=== PATIENT | female | born 1990 | race Two or more races ===

== ENCOUNTER → 2018-01-12 | Outpatient (CLI) | payer OTHER | END | disposition home or self-care (01) | LOC: PPHC 13:03 | DX: J06.9 Acute upper respiratory infection, unspecified (principal) ==

== ENCOUNTER 2018-12-03 10:08 | Outpatient (CLI) | payer OTHER | END 2018-12-03 10:54 | disposition home or self-care (01) | LOC: SONOGRAMA 10:08 | DX: N94.89 Other specified conditions associated with female genital organs and menstrual cycle (principal) ==

== ENCOUNTER 2019-01-04 09:33 | Outpatient (CLI) | payer OTHER | END 2019-01-04 14:54 | disposition home or self-care (01) | LOC: LAB 09:33 | DX: J11.1 Influenza due to unidentified influenza virus with other respiratory manifestations (principal); J20.0 Acute bronchitis due to Mycoplasma pneumoniae ==

== ENCOUNTER → 2019-01-29 | Outpatient (CLI) | payer OTHER | END | disposition home or self-care (01) | LOC: LAB 08:47 | DX: N94.89 Other specified conditions associated with female genital organs and menstrual cycle (principal) ==

== ENCOUNTER → 2019-08-06 09:43 | Outpatient (CLI) | payer OTHER | END | disposition home or self-care (01) | LOC: LAB 09:43 | DX: D50.8 Other iron deficiency anemias (principal); N92.5 Other specified irregular menstruation; R10.2 Pelvic and perineal pain ==

== ENCOUNTER 2019-08-06 10:24 | Outpatient (CLI) | payer OTHER | END 2019-08-06 13:04 | disposition home or self-care (01) | LOC: SONOGRAMA 10:24 | DX: N92.6 Irregular menstruation, unspecified (principal); R10.2 Pelvic and perineal pain ==

== ENCOUNTER 2019-08-25 11:05 | Outpatient (CLI) | payer OTHER | END 2019-08-25 15:46 | disposition home or self-care (01) | LOC: LAB 11:05 | DX: Z34.81 Encounter for supervision of other normal pregnancy, first trimester (principal) ==

== ENCOUNTER → 2019-09-10 12:02 | Outpatient (CLI) | payer OTHER | END | disposition home or self-care (01) | LOC: LAB 12:02 | DX: Z34.81 Encounter for supervision of other normal pregnancy, first trimester (principal); R10.2 Pelvic and perineal pain ==

== ENCOUNTER 2019-09-15 09:49 | Outpatient (CLI) | payer OTHER | END 2019-09-15 09:52 | disposition home or self-care (01) | LOC: TOM 09:49 | DX: C54.1 Malignant neoplasm of endometrium (principal) ==

== ENCOUNTER 2019-10-08 14:30 | Outpatient (CLI) | payer OTHER | END 2019-10-08 14:35 | disposition home or self-care (01) | LOC: LAB 14:30 | DX: N20.0 Calculus of kidney (principal) ==

== ENCOUNTER 2019-10-12 08:48 | Outpatient (CLI) | payer OTHER | END 2019-10-12 13:17 | disposition home or self-care (01) | LOC: LAB 08:48 | DX: C54.1 Malignant neoplasm of endometrium (principal) ==

== ENCOUNTER 2019-10-18 11:22 | Outpatient (CLI) | payer OTHER | END 2019-10-18 14:25 | disposition home or self-care (01) | LOC: LAB 11:22 | DX: N91.0 Primary amenorrhea (principal) ==

== ENCOUNTER 2020-01-04 10:07 | Outpatient (CLI) | payer OTHER | END 2020-01-04 10:12 | disposition home or self-care (01) | LOC: LAB 10:07 | DX: J11.1 Influenza due to unidentified influenza virus with other respiratory manifestations (principal); J06.9 Acute upper respiratory infection, unspecified; R05 Cough ==

== ENCOUNTER 2020-01-07 09:55 | Outpatient (CLI) | payer OTHER | END 2020-01-07 15:00 | disposition home or self-care (01) | LOC: LAB 09:55 | DX: J11.1 Influenza due to unidentified influenza virus with other respiratory manifestations (principal); R05 Cough ==

== ENCOUNTER 2020-02-08 10:46 | Outpatient (CLI) | payer OTHER | END 2020-02-08 10:50 | disposition home or self-care (01) | LOC: LAB 10:46 | DX: D50.8 Other iron deficiency anemias (principal) ==

== ENCOUNTER 2020-02-29 07:13 | Outpatient (CLI) | payer OTHER | END 2020-02-29 13:58 | disposition home or self-care (01) | LOC: LAB 07:13 | DX: N91.0 Primary amenorrhea (principal); Z36.8A Encounter for antenatal screening for other genetic defects ==

== ENCOUNTER 2020-03-10 11:30 | Outpatient (CLI) | payer OTHER | END 2020-03-10 11:33 | disposition home or self-care (01) | LOC: RX STUDY 11:30 | DX: N93.0 Postcoital and contact bleeding (principal) ==

== ENCOUNTER 2020-03-23 10:44 | Outpatient (CLI) | payer OTHER | END 2020-03-23 15:00 | disposition home or self-care (01) | LOC: LAB 10:44 | PROVIDERS: ATTEND Obstetrics & Gynecology Reproductive Endocrinology | DX: N80.1 Endometriosis of ovary (principal) ==

== ENCOUNTER 2020-05-02 14:55 | Outpatient (CLI) | payer OTHER | END 2020-05-02 15:07 | disposition home or self-care (01) | LOC: LAB 14:55 | PROVIDERS: ATTEND Preventive Medicine Occupational Medicine | DX: Z12.11 Encounter for screening for malignant neoplasm of colon (principal); Z00.00 Encounter for general adult medical examination without abnormal findings; Z78.0 Asymptomatic menopausal state; Z11.4 Encounter for screening for human immunodeficiency virus [HIV]; Z13.6 Encounter for screening for cardiovascular disorders ==

== ENCOUNTER 2020-11-08 06:47 | Outpatient (CLI) | payer OTHER | END 2020-11-08 06:50 | disposition home or self-care (01) | LOC: LAB 06:47 | DX: I10 Essential (primary) hypertension (principal) ==

== ENCOUNTER 2020-12-25 07:21 | Outpatient (CLI) | payer OTHER | END 2020-12-25 07:26 | disposition home or self-care (01) | LOC: LAB 07:21 | PROVIDERS: ATTEND Radiology Diagnostic Radiology | DX: N20.0 Calculus of kidney (principal) ==

== ENCOUNTER 2020-12-25 08:07 | Outpatient (CLI) | payer OTHER | END 2020-12-25 08:10 | disposition home or self-care (01) | LOC: MRI 08:07 | PROVIDERS: ATTEND Specialist | DX: N83.292 Other ovarian cyst, left side (principal); N83.291 Other ovarian cyst, right side; N85.00 Endometrial hyperplasia, unspecified; C54.8 Malignant neoplasm of overlapping sites of corpus uteri | CPT/HCPCS: 72197 ==

== ENCOUNTER 2020-12-27 08:34 | Outpatient (CLI) | payer OTHER | END 2020-12-27 08:39 | disposition home or self-care (01) | LOC: LAB 08:34 | PROVIDERS: ATTEND Specialist | DX: C54.1 Malignant neoplasm of endometrium (principal) ==

== ENCOUNTER 2021-01-02 12:05 | Outpatient (CLI) | payer OTHER | END 2021-01-02 12:22 | disposition home or self-care (01) | LOC: RAD 12:05 | DX: J45.902 Unspecified asthma with status asthmaticus (principal); J32.0 Chronic maxillary sinusitis ==

== ENCOUNTER → 2021-02-16 06:22 | Outpatient (CLI) | payer OTHER | END | disposition home or self-care (01) | LOC: LAB 06:22 | PROVIDERS: ATTEND Specialist | DX: D68.8 Other specified coagulation defects (principal); N39.0 Urinary tract infection, site not specified; I10 Essential (primary) hypertension; K76.89 Other specified diseases of liver; N91.2 Amenorrhea, unspecified; D69.49 Other primary thrombocytopenia; D69.3 Immune thrombocytopenic purpura; I27.89 Other specified pulmonary heart diseases ==

== ENCOUNTER 2021-02-21 11:30 | Day surgery (SDC) | payer OTHER | END 2021-02-22 03:00 | disposition home or self-care (01) | LOC: CIR.AMB 11:30 | PROVIDERS: ATTEND Specialist | DX: N85.01 Benign endometrial hyperplasia (principal); Z20.822 Contact with and (suspected) exposure to COVID-19 ==

== ENCOUNTER → 2021-06-06 07:16 | Outpatient (CLI) | payer OTHER | END | disposition home or self-care (01) | LOC: LAB 07:16 | PROVIDERS: ATTEND Emergency Medicine Pediatric Emergency Medicine | DX: Z03.818 Encounter for observation for suspected exposure to other biological agents ruled out (principal) ==

== ENCOUNTER 2021-06-13 08:33 | Outpatient (CLI) | payer OTHER | END 2021-06-13 15:00 | disposition home or self-care (01) | LOC: LAB 08:33 | PROVIDERS: ATTEND Emergency Medicine Pediatric Emergency Medicine | DX: Z03.818 Encounter for observation for suspected exposure to other biological agents ruled out (principal) ==

== ENCOUNTER 2021-06-20 08:20 | Outpatient (CLI) | payer OTHER | END 2021-06-20 18:20 | disposition home or self-care (01) | LOC: LAB 08:20 | PROVIDERS: ATTEND Emergency Medicine Pediatric Emergency Medicine | DX: Z03.818 Encounter for observation for suspected exposure to other biological agents ruled out (principal) ==

== ENCOUNTER → 2021-07-03 08:09 | Outpatient (CLI) | payer OTHER | END | disposition home or self-care (01) | LOC: LAB 08:09 | PROVIDERS: ATTEND Emergency Medicine Pediatric Emergency Medicine | DX: Z03.818 Encounter for observation for suspected exposure to other biological agents ruled out (principal) ==

== ENCOUNTER 2021-07-09 09:37 | Outpatient (CLI) | payer OTHER | END 2021-07-09 18:00 | disposition home or self-care (01) | LOC: LAB 09:37 | PROVIDERS: ATTEND Emergency Medicine Pediatric Emergency Medicine | DX: Z03.818 Encounter for observation for suspected exposure to other biological agents ruled out (principal) ==

== ENCOUNTER 2021-07-19 08:34 | Outpatient (CLI) | payer OTHER | END 2021-07-19 08:35 | disposition home or self-care (01) | LOC: LAB 08:34 | PROVIDERS: ATTEND Emergency Medicine Pediatric Emergency Medicine | DX: Z03.818 Encounter for observation for suspected exposure to other biological agents ruled out (principal) ==

== ENCOUNTER 2021-07-26 07:43 | Outpatient (CLI) | payer OTHER | END 2021-07-26 07:55 | disposition home or self-care (01) | LOC: LAB 07:43 | PROVIDERS: ATTEND Emergency Medicine Pediatric Emergency Medicine | DX: Z03.818 Encounter for observation for suspected exposure to other biological agents ruled out (principal) ==

== ENCOUNTER 2021-07-26 07:51 | Outpatient (CLI) | payer OTHER | END 2021-07-26 07:55 | disposition home or self-care (01) | LOC: LAB 07:51 | DX: Z03.818 Encounter for observation for suspected exposure to other biological agents ruled out (principal) ==

== ENCOUNTER → 2021-08-03 07:57 | Outpatient (CLI) | payer OTHER | END | disposition home or self-care (01) | LOC: LAB 07:57 | PROVIDERS: ATTEND Specialist | DX: E28.8 Other ovarian dysfunction (principal) ==

== ENCOUNTER → 2021-08-06 10:01 | Outpatient (CLI) | payer OTHER | END | disposition home or self-care (01) | LOC: LAB 10:01 | PROVIDERS: ATTEND Emergency Medicine Pediatric Emergency Medicine | DX: Z03.818 Encounter for observation for suspected exposure to other biological agents ruled out (principal) ==

== ENCOUNTER → 2021-08-16 | Outpatient (CLI) | payer OTHER | END | disposition home or self-care (01) | LOC: LAB 08:13 | PROVIDERS: ATTEND Emergency Medicine Pediatric Emergency Medicine | DX: Z03.818 Encounter for observation for suspected exposure to other biological agents ruled out (principal) ==

== ENCOUNTER → 2021-08-23 08:28 | Outpatient (CLI) | payer OTHER | END | disposition home or self-care (01) | LOC: LAB 08:28 | PROVIDERS: ATTEND Emergency Medicine Pediatric Emergency Medicine | DX: Z03.818 Encounter for observation for suspected exposure to other biological agents ruled out (principal) ==

== ENCOUNTER → 2021-08-31 11:41 | Outpatient (CLI) | payer OTHER | END | disposition home or self-care (01) | LOC: LAB 11:41 | PROVIDERS: ATTEND Emergency Medicine Pediatric Emergency Medicine | DX: Z03.818 Encounter for observation for suspected exposure to other biological agents ruled out (principal) ==

== ENCOUNTER 2021-09-14 08:17 | Outpatient (CLI) | payer OTHER | END 2021-09-14 08:38 | disposition home or self-care (01) | LOC: LAB 08:17 | PROVIDERS: ATTEND Emergency Medicine Pediatric Emergency Medicine | DX: Z03.818 Encounter for observation for suspected exposure to other biological agents ruled out (principal) ==

== ENCOUNTER → 2021-09-25 07:27 | Outpatient (CLI) | payer OTHER | END | disposition home or self-care (01) | LOC: LAB 07:27 | PROVIDERS: ATTEND Emergency Medicine Pediatric Emergency Medicine | DX: Z03.818 Encounter for observation for suspected exposure to other biological agents ruled out (principal) ==

== ENCOUNTER 2021-10-04 11:01 | Outpatient (CLI) | payer OTHER | END 2021-10-04 11:06 | disposition home or self-care (01) | LOC: LAB 11:01 | PROVIDERS: ATTEND Emergency Medicine Pediatric Emergency Medicine | DX: Z03.818 Encounter for observation for suspected exposure to other biological agents ruled out (principal) ==

== ENCOUNTER 2021-10-12 08:48 | Outpatient (CLI) | payer OTHER | END 2021-10-12 15:00 | disposition home or self-care (01) | LOC: LAB 08:48 | PROVIDERS: ATTEND Emergency Medicine Pediatric Emergency Medicine | DX: Z03.818 Encounter for observation for suspected exposure to other biological agents ruled out (principal) ==

== ENCOUNTER 2021-10-18 13:16 | Outpatient (CLI) | payer OTHER | END 2021-10-18 13:17 | disposition home or self-care (01) | LOC: LAB 13:16 | PROVIDERS: ATTEND Preventive Medicine Occupational Medicine | DX: U07.1 COVID-19 (principal) ==

== ENCOUNTER 2021-10-23 14:00 | Outpatient (CLI) | payer OTHER | END 2021-10-23 15:00 | disposition home or self-care (01) | LOC: ASH CLINIC 14:00 | DX: U07.1 COVID-19 (principal); Z23 Encounter for immunization ==

== ENCOUNTER 2022-01-14 07:19 | Outpatient (CLI) | payer OTHER | END 2022-01-14 07:22 | disposition home or self-care (01) | LOC: LAB 07:19 | DX: Z20.822 Contact with and (suspected) exposure to COVID-19 (principal) ==

== ENCOUNTER 2022-01-22 07:47 | Outpatient (CLI) | payer OTHER | END 2022-01-22 07:48 | disposition home or self-care (01) | LOC: LAB 07:47 | DX: Z20.822 Contact with and (suspected) exposure to COVID-19 (principal) ==

== ENCOUNTER 2022-01-28 07:34 | Outpatient (CLI) | payer OTHER | END 2022-01-28 07:38 | disposition home or self-care (01) | LOC: LAB 07:34 | DX: Z03.818 Encounter for observation for suspected exposure to other biological agents ruled out (principal) ==

== ENCOUNTER 2022-02-04 07:20 | Outpatient (CLI) | payer OTHER | END 2022-02-04 07:23 | disposition home or self-care (01) | LOC: LAB 07:20 | DX: Z03.818 Encounter for observation for suspected exposure to other biological agents ruled out (principal) ==

== ENCOUNTER → 2022-02-18 08:05 | Outpatient (CLI) | payer OTHER | END | disposition home or self-care (01) | LOC: LAB 08:05 | PROVIDERS: ATTEND General Practice | DX: Z03.818 Encounter for observation for suspected exposure to other biological agents ruled out (principal) ==

== ENCOUNTER 2022-02-26 08:26 | Outpatient (CLI) | payer OTHER | END 2022-02-26 08:31 | disposition home or self-care (01) | LOC: LAB 08:26 | PROVIDERS: ATTEND General Practice | DX: Z03.818 Encounter for observation for suspected exposure to other biological agents ruled out (principal) ==

== ENCOUNTER 2022-03-04 08:09 | Outpatient (CLI) | payer OTHER | END 2022-03-04 08:15 | disposition home or self-care (01) | LOC: LAB 08:09 | PROVIDERS: ATTEND General Practice | DX: Z03.818 Encounter for observation for suspected exposure to other biological agents ruled out (principal) ==

== ENCOUNTER 2022-03-26 08:34 | Outpatient (CLI) | payer OTHER | END 2022-03-26 08:38 | disposition home or self-care (01) | LOC: LAB 08:34 | PROVIDERS: ATTEND General Practice | DX: Z20.822 Contact with and (suspected) exposure to COVID-19 (principal) ==

== ENCOUNTER → 2022-04-16 07:52 | Outpatient (CLI) | payer OTHER | END | disposition home or self-care (01) | LOC: LAB 07:52 | PROVIDERS: ATTEND General Practice | DX: Z20.822 Contact with and (suspected) exposure to COVID-19 (principal) ==

== ENCOUNTER 2022-04-25 09:15 | Outpatient (CLI) | payer OTHER | END 2022-04-25 09:22 | disposition home or self-care (01) | LOC: NUCLEAR 09:15 | PROVIDERS: ATTEND General Practice | DX: I73.9 Peripheral vascular disease, unspecified (principal); I82.403 Acute embolism and thrombosis of unspecified deep veins of lower extremity, bilateral ==

== ENCOUNTER 2022-05-14 07:02 | Outpatient (CLI) | payer OTHER | END 2022-05-14 07:03 | disposition home or self-care (01) | LOC: LAB 07:02 | PROVIDERS: ATTEND Preventive Medicine Occupational Medicine | DX: Z13.9 Encounter for screening, unspecified (principal); I73.9 Peripheral vascular disease, unspecified ==

== ENCOUNTER 2022-06-28 08:29 | Outpatient (CLI) | payer OTHER | END 2022-06-28 15:07 | disposition home or self-care (01) | LOC: LAB 08:29 | DX: D50.8 Other iron deficiency anemias (principal) ==

== ENCOUNTER → 2022-08-15 09:59 | Outpatient (CLI) | payer OTHER | END | disposition home or self-care (01) | LOC: LAB 09:59 | DX: Z20.822 Contact with and (suspected) exposure to COVID-19 (principal) ==

== ENCOUNTER → 2022-09-11 09:29 | Outpatient (CLI) | payer OTHER | END | disposition home or self-care (01) | LOC: LAB 09:29 | DX: Z20.822 Contact with and (suspected) exposure to COVID-19 (principal) ==

== ENCOUNTER 2022-09-17 08:31 | Outpatient (CLI) | payer OTHER | END 2022-09-17 08:32 | disposition home or self-care (01) | LOC: LAB 08:31 | DX: Z20.822 Contact with and (suspected) exposure to COVID-19 (principal) ==

== ENCOUNTER 2022-09-30 08:22 | Outpatient (CLI) | payer OTHER | END 2022-09-30 08:23 | disposition home or self-care (01) | LOC: LAB 08:22 | DX: Z20.822 Contact with and (suspected) exposure to COVID-19 (principal) ==

== ENCOUNTER 2022-10-07 08:05 | Outpatient (CLI) | payer OTHER | END 2022-10-07 08:06 | disposition home or self-care (01) | LOC: LAB 08:05 | DX: Z20.822 Contact with and (suspected) exposure to COVID-19 (principal) ==

== ENCOUNTER 2023-01-21 07:55 | Outpatient (CLI) | payer OTHER | END 2023-01-21 07:57 | disposition home or self-care (01) | LOC: LAB 07:55 | DX: Z20.822 Contact with and (suspected) exposure to COVID-19 (principal) ==

== ENCOUNTER 2023-01-28 07:10 | Outpatient (CLI) | payer OTHER | END 2023-01-28 07:14 | disposition home or self-care (01) | LOC: LAB 07:10 | DX: Z20.822 Contact with and (suspected) exposure to COVID-19 (principal) ==

== ENCOUNTER 2023-02-03 10:54 | Outpatient (CLI) | payer OTHER | END 2023-02-03 10:55 | disposition home or self-care (01) | LOC: LAB 10:54 | DX: Z20.822 Contact with and (suspected) exposure to COVID-19 (principal) ==

== ENCOUNTER 2023-06-03 07:35 | Outpatient (CLI) | payer OTHER | END 2023-06-03 07:48 | disposition home or self-care (01) | LOC: LAB 07:35 | DX: E55.9 Vitamin D deficiency, unspecified (principal); E03.9 Hypothyroidism, unspecified; E78.5 Hyperlipidemia, unspecified; E11.9 Type 2 diabetes mellitus without complications ==

== ENCOUNTER 2023-06-04 16:11 | Outpatient (CLI) | payer OTHER | END 2023-06-04 16:30 | disposition home or self-care (01) | LOC: RAD 16:11 | DX: Z13.83 Encounter for screening for respiratory disorder NEC (principal) ==